=== PATIENT | female | born 1955 | race Caucasian/White ===

== ENCOUNTER → 2016-12-09 | Day surgery (SDC) | payer BC ==
[~2016-12-09] MED LIST: ESCITALOPRAM OX10 MG PO; LISINOPRIL10 MG PO; MOTRIN IB200 M1 PO; PROAIR HFA8.5 GM INH
--- NOTE | ~2016-12-09 | OR ---
Unit #: [id number] #: [id number] Patient: ANMOL ANTHONY [id number] [address] [place], [place] [address] [id number] MR#: [id number] NAME: ANMOL ANTHONY ROOM: Date of Procedure: 12/09/2016 Admission Date: 12/09/2016 Surgeon: Mauricio Henriquez M.D. : 1955 Attending Physician: Mauricio Henriquez M.D. Referring Physician: Mauricio Henriquez M.D. Primary Care Physician: John Lunsford M.D. OPERATIVE REPORT PRIMARY CARE PHYSICIAN John Lunsford M.D. PREOPERATIVE DIAGNOSIS Colorectal cancer screening in an average-risk patient. PROCEDURES PERFORMED 1. Colonoscopy and polypectomy. 2. Colonoscopy and ablation. 3. Colonoscopy with submucosal injection. POSTOPERATIVE DIAGNOSES 1. The patient had two sessile polyps. The largest of these was in the mid ascending colon about 2 cm in size. It was removed after submucosal injection with methylcellulose followed by piecemeal polypectomy. The residual polyp tissue was then ablated using argon plasma coagulation therapy. A second diminutive polyp was seen in the mid ascending colon and was also removed using cold biopsy forceps. 2. The patient had mild sigmoid and descending colon diverticulosis. 3. Rest of the examination up to cecum and terminal ileum was normal. The quality of the prep was excellent. RECOMMENDATIONS Follow up the results of polyp histology and based upon that, consider surveillance colonoscopy in 2 to 3 years. SEDATION USED MAC. DESCRIPTION OF PROCEDURE Following detailed explanation of potential risks and complications of a colonoscopy, namely perforation, bleeding, and complication related to sedation, the patient was brought to GI lab and laid in the left lateral decubitus position. A digital rectal examination was performed, which was normal. Lubricated tip of the Olympus video colonoscope was inserted through the anus and advanced under direct vision. The scope was advanced past rectosigmoid into descending colon. Multiple small diverticula were noticed in this area. The scope tip was then navigated all the way up to cecum with visualization of the ileocecal valve and the appendiceal orifice. Preparation was excellent with good visualization and photodocumentation was obtained. Successive segments of the colonic mucosa were examined upon withdrawal. The patient was noted to have a Unit #: [id number] #: [id number] Patient: ANMOL ANTHONY small diminutive sessile polyp in the proximal ascending colon. This was removed using cold biopsy forceps. A second largest polyp was seen in the mid ascending colon, which was true flat sessile adenoma. This was removed using piecemeal polypectomy using a braided snare after submucosal injection with methylcellulose drops. The residual polyp tissue was then ablated using argon plasma coagulation therapy. The retrieved polyp fragments were sent for histology. No additional polyps were noted. Other than the left-sided diverticula, no other abnormalities were found. The patient did not have any hemorrhoids at the anal verge. The scope was then withdrawn and the patient returned to the recovery area. She tolerated the procedure without any postprocedure complications. Dictated by... Johnny Mantilla/arlen TD: 12/10/2016 01:22 JOB #: [id number] CC: John Lunsford M.D. OPERATIVE REPORT Page 1 of 1 X Mauricio Henriquez MD X PROCEDURE OPERATIVE NOTE
== END | disposition home or self-care (01) ==
LOC: COPS 07:33
DX: Z12.11 Encounter for screening for malignant neoplasm of colon (principal); D12.2 Benign neoplasm of ascending colon; I10 Essential (primary) hypertension; J43.9 Emphysema, unspecified; F17.210 Nicotine dependence, cigarettes, uncomplicated; Z88.0 Allergy status to penicillin; Z79.899 Other long term (current) drug therapy; Z90.49 Acquired absence of other specified parts of digestive tract; Z90.710 Acquired absence of both cervix and uterus; Z98.890 Other specified postprocedural states
CPT/HCPCS: 88305